=== PATIENT | male | born 1975 | race African-American/Black ===

== ENCOUNTER 2023-04-03 08:09 | Emergency (ER) | payer OTHER ==
[~2023-04-03] VITALS: Ht 160 cm; Wt 81.6 kg
[~2023-04-03 08:09] MED LIST: CEFADROXIL500 MG PO; KETO10TA2 PO
== END 2023-04-03 11:39 | disposition home or self-care (01) ==
LOC: ER 08:09
DX: M94.0 Chondrocostal junction syndrome [Tietze] (principal); Z91.013 Allergy to seafood